=== PATIENT | female | born 1985 | race Caucasian/White ===

== ENCOUNTER 2018-07-30 15:39 | Emergency (ER) | payer BC ==
[2018-07-30 15:45] VITALS: BP 142/94
== END 2018-07-30 16:27 | disposition left against medical advice (07) ==
LOC: ED 15:39
DX: R10.9 Unspecified abdominal pain (principal); Z53.21 Procedure and treatment not carried out due to patient leaving prior to being seen by health care provider
CPT/HCPCS: 99281

== ENCOUNTER 2018-11-18 10:36 | Emergency (ER) | payer OTHER ==
[2018-11-18] MEDS ORDERED: diPHENhydraMINE IV* 50 MG/ML 1 ml VIAL (BENADRYL) IV ONE (11:01)
[2018-11-18] MEDS ORDERED: Dexamethasone IV* 4 MG/ML 1 ML (4 MG) IV SLOW PU ONE (11:01)
[2018-11-18] MEDS ORDERED: Famotidine IV* 10 MG/ML 2 ML (20 mg) IV SLOW PU ONE (11:01)
--- NOTE | 2018-11-18 11:01 | ED ---
Allergic Reaction/Systemic - HPI Summary HPI Summary: The patient is a 32 y/o M presenting to [facility] accompanied by with a chief complaint of allergic reaction to a sulfa rx starting over the last two days. She states that she was recently on abx for being exposed to MRSA; the course started on 11/08/18, and ended a week later. She missed two pills because she forgot to take them, but she hasn't taken any for the last two days. When the course ended, she began to have a headache behind her eyes, some difficulty breathing secondary to CP last night, and then this morning she woke up with an erythematous urticarial rash over the face, neck, back, chest, and arms. The rash is burning and pruritic. The pain is currently rated 7/10 in severity. She denies throat and tongue swelling. She states that she has had similar reactions to amoxicillin and oxycodone. - History of Current Complaint Chief Complaint: EDAllergicReaction Hx Obtained From: Patient Onset/Duration: Sudden Onset, Started hours ago, Still Present Timing: Lasting Hours Pain Intensity: 7 Pain Scale Used: 0-10 Numeric Location: Diffuse Character: Pruritus, Hives Aggravating Factor(s): Nothing Alleviating Factor(s): Nothing Associated Signs And Symptoms: Positive: Chest Pain, Difficulty Breathing - secondary to CP, Rash - erythematous hives over face, neck, chest, back, arms, Other: - POSITIVE: headache behind eyes; NEGATIVE: throat or tongue swelling - Allergies/Home Medications Allergies/Adverse Reactions: Allergies Allergy/AdvReac Type Severity Reaction Status Date / Time amoxicillin Allergy Hives Verified 07/30/18 15:45 oxycodone Allergy Hives Verified 07/30/18 15:45 Sulfa (Sulfonamide Allergy Hives/Diff. Verified 11/18/18 10:42 Antibiotics) Breathing/I tching PMH/Surg Hx/FS Hx/Imm Hx Endocrine/Hematology History: Denies: Hx Diabetes Cardiovascular History: Denies: Hx Hypercholesterolemia, Hx Hypertension Opthamlomology History: Denies: Hx Legally Blind EENT History: Denies: Hx Deafness - Surgical History Surgical History: None Surgery Procedure, Year, and Place: none Infectious Disease History: No Infectious Disease History: Denies: Traveled Outside the [place] in Last 30 Days - Family History Known Family History: Negative: Hypertension - Social History Alcohol Use: None Hx Substance Use: No Substance Use Type: Reports: None Hx Tobacco Use: No Smoking Status (MU): Never Smoked Tobacco Do You Chew or Dip Tobacco: No Have You Chewed or Dipped Tobacco in the LAST YEAR: No Have You Smoked in the Last Year: No Review of Systems Positive: Other - POSITIVE: tingling in lips; NEGATIVE: throat swelling, tongue swelling Positive: Chest Pain Positive: Other - diffculty breathing secondary to CP Positive: Rash - erythematous urticarial-like rash extending over face, neck, back, chest, arms with burning and pruritus Positive: Headache - pain behind eyes All Other Systems Reviewed And Are Negative: Yes Physical Exam - Summary Physical Exam Summary: VITAL SIGNS: Reviewed. GENERAL: Patient is a well-developed and nourished female who is lying comfortable in the stretcher. Patient is not in any acute respiratory distress. HEAD AND FACE: No signs of trauma. No ecchymosis, hematomas or skull depressions. No sinus tenderness. EYES: PERRLA, EOMI x 2, No injected conjunctiva, no nystagmus. EARS: Hearing grossly intact. Ear canals and tympanic membranes are within normal limits. MOUTH: Oropharynx within normal limits. NECK: Supple, trachea is midline, no adenopathy, no JVD, no carotid bruit, no c- spine tenderness, neck with full ROM. CHEST: Symmetric, no tenderness at palpation LUNGS: Clear to auscultation bilaterally. No wheezing or crackles. CVS: Regular rate and rhythm, S1 and S2 present, no murmurs or gallops appreciated. ABDOMEN: Soft, non-tender. No signs of distention. No rebound no guarding, and no masses palpated. Bowel sounds are normal. EXTREMITIES: FROM in all major joints, no edema, no cyanosis or clubbing. NEURO: Alert and oriented x 3. No acute neurological deficits. Speech is normal and follows commands. SKIN: Diffuse erythematous rash. Dry and warm. Triage Information Reviewed: Yes Vital Signs On Initial Exam: Initial Vitals Temp Pulse Resp BP Pulse Ox 99.5 F 84 18 120/83 99 11/18/18 10:38 11/18/18 10:38 11/18/18 10:38 11/18/18 10:38 11/18/18 10:38 Vital Signs Reviewed: Yes Diagnostics - Vital Signs Vital Signs Temp Pulse Resp BP Pulse Ox 11/18/18 10:38 99.5 F 84 18 120/83 99 - Laboratory Lab Statement: Any lab studies that have been ordered have been reviewed, and results considered in the medical decision making process. Re-Evaluation - Re-Evaluation First Eval Re-Evaluation Time: 11:40 Change: Improved Comment: The patient's symptoms are improving. We discussed the discharge plan. Allergic Reaction Course/Dx - Course Assessment/Plan: The patient is a 32 y/o M presenting to [facility] accompanied by with a chief complaint of allergic reaction to a sulfa rx starting over the last two days. She states that she was recently on abx for being exposed to MRSA; the course started on 11/08/18, and ended a week later. She missed two pills because she forgot to take them, but she hasn't taken any for the last two days. When the course ended, she began to have a headache behind her eyes, some difficulty breathing secondary to CP last night, and then this morning she woke up with an erythematous urticarial rash over the face, neck, back, chest, and arms. The rash is burning and pruritic. The pain is currently rated 7/10 in severity. She denies throat and tongue swelling. She states that she has had similar reactions to amoxicillin and oxycodone. In the ED course the patient has a diffuse rash, she does not have any difficulties with her airway, denies any swelling of the tongue, denies any shortness of breath, and denies any swelling of the lips. Therefore, the patient was given Decadron, Solu-Medrol, and Pepcid. After these medications, the patients symptoms have significantly improved. Therefore, the patient will be discharged home with follow-up with primary care physician. Patient is hemodynamically stable alert and oriented 3. I discussed all the findings and test results with the patient. Patient was instructed to return to the emergency room immediately if any of the symptoms return worsens. Plan of care was discussed with the patient and understands and agrees. All questions were answered at patient satisfaction. There were no further complaints or concerns. Lung exam before discharge: CTA B/L. Good air exchange. No wheezing or crackles heard. CVS: S1 and S2 present. No murmurs appreciated. Patient is alert and oriented x 3. Patient is hemodynamically stable. Patient will be discharged home with follow up PCP in the next 2-3 days. - Diagnoses Provider Diagnoses: Allergic reaction Discharge - Sign-Out/Discharge Documenting (check all that apply): Patient Departure - Patient will be discharged home. Patient Received Moderate/Deep Sedation with Procedure: No - Discharge Plan Condition: Stable Disposition: HOME Prescriptions: diPHENhydraMINE PO* [Benadryl PO 25 MG TAB*] 25 mg PO TID PRN #30 tab PRN Reason: Allergy Symptoms Famotidine TAB* [Pepcid 20 MG TAB*] 20 mg PO DAILY #10 tab predniSONE TAB* [Deltasone 20 MG TAB*] 40 mg PO DAILY #8 tab Patient Education Materials: General Allergic Reaction (ED) Forms: *Work Release Referrals: Garima MCQUEEN FNTONY,Sarah Beth Fitzpatrick [Primary Care Provider] - 3 Days Additional Instructions: Please take medications as prescribed. Follow up with your primary care provider in 2-3 days. RETURN TO THE EMERGENCY DEPARTMENT FOR ANY NEW OR WORSENING SYMPTOMS. - Billing Disposition and Condition Condition: STABLE Disposition: Home - Attestation Statements Document Initiated by Jurgen: Yes Documenting Scribe: Shirley Fairbanks Provider For Whom Jurgen is Documenting (Include Credential): Dr. Kofi Obregon MD Scribe Attestation: Shirley Mahan scribed for Dr. Kofi Obregon MD on 11/18/18 at 1343. Scribe Documentation Reviewed: Yes Provider Attestation: The documentation as recorded by the Shirley estrella accurately reflects the service I personally performed and the decisions made by me, Dr. Kofi Obregon MD Status of Scribe Document: Ready
[2018-11-18] MEDS ORDERED: NS 0.9% 1000 ML** 1,000 ML IV ONE (11:03)
[2018-11-18 12:16] VITALS: BP 113/80
== END 2018-11-18 12:16 | disposition home or self-care (01) ==
LOC: ED 10:36
DX: L27.1 Localized skin eruption due to drugs and medicaments taken internally (principal); R51 Headache; R06.00 Dyspnea, unspecified; R07.89 Other chest pain; T36.8X5A Adverse effect of other systemic antibiotics, initial encounter; Y92.9 Unspecified place or not applicable; Z88.5 Allergy status to narcotic agent; Z88.0 Allergy status to penicillin; Z88.2 Allergy status to sulfonamides
CPT/HCPCS: 96361; 96374; 96375; 99282; J1100; J1200

== ENCOUNTER 2018-12-18 20:16 | Emergency (ER) | payer OTHER ==
[2018-12-18 22:44] LABS: Hepatitis B Surface Antigen Negative (Negative)
[2018-12-18 23:02] LABS: Hepatitis C Antibody Negative (Negative)
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
[2018-12-18 23:04] LABS: HIV 4th Generation Negative (Negative)
[2018-12-18 23:08] VITALS: BP 138/74
== END 2018-12-18 23:07 | disposition home or self-care (01) ==
LOC: ED 20:16
DX: S51.851A Open bite of right forearm, initial encounter (principal); Z77.21 Contact with and (suspected) exposure to potentially hazardous body fluids; Y04.1XXA Assault by human bite, initial encounter; Y92.89 Other specified places as the place of occurrence of the external cause; Y99.0 Civilian activity done for income or pay
CPT/HCPCS: 36415; 80074; 87389; 99282